=== PATIENT | female | born 1990 | race Caucasian/White ===

== ENCOUNTER 2020-05-17 12:11 | Outpatient (REF) | payer MEDICAID, SELFPAY | END 2020-05-17 12:12 | disposition home or self-care (01) | LOC: HO.LAB 12:11 | PROVIDERS: Visit Provider Internal Medicine | DX: Z20.822 Contact with and (suspected) exposure to COVID-19 (principal) | CPT/HCPCS: 36415; C9803; U0003; U0005 ==

== ENCOUNTER 2022-05-31 20:00 | Emergency (ER) | payer OTHER, SELFPAY ==
--- NOTE | ~2022-05-31 | CT_ITS ---
EXAMINATION: CT ABDOMEN AND PELVIS WITH CONTRAST CLINICAL INFORMATION: Right lower quadrant abdominal pain. COMPARISON: CT abdomen/pelvis 02/06/2012. TECHNIQUE: Multidetector volumetric images were obtained from the superior aspect of the liver through the pubic symphysis following administration 85 mL of Omnipaque 350 intravenous contrast. Sagittal and coronal reformatted images were obtained on the technologist's workstation. Oral contrast: No This CT examination was performed using dose optimization techniques as appropriate, variously including the following: *Automated exposure control *Adjustment of mA and/or kV according to patient size (this includes techniques or standardized protocols for targeted exams where dose is matched to indication/reason for exam; i.e. extremities or head) *Use of iterative reconstruction technique DLP: 358 mGy-cm FINDINGS: LUNG BASES: No focal consolidation or pleural effusion. LIVER, GALLBLADDER, AND BILIARY TREE: The liver is enlarged measuring 18.2 cm craniocaudally but otherwise normal in shape and attenuation. No discrete focal lesion. Cholecystectomy. No biliary ductal dilatation. PANCREAS: Unremarkable. SPLEEN: Unremarkable. ADRENAL GLANDS: Unremarkable. KIDNEYS AND URETERS: The kidneys are normal in size, shape, and attenuation. No hydronephrosis, hydroureter, or calculi seen. No perinephric stranding. BLADDER: Partially under distended limiting its evaluation. GASTROINTESTINAL TRACT: Nonspecific fluid filled distended loops of distal small bowel, for instance coronal image 19 and 23, series 5. The stomach is nondilated. Normal appendix. No pericolonic inflammatory changes to suspect acute diverticulitis or colitis. ABDOMINAL WALL: No significant hernia is appreciated. LYMPH NODES: Evaluation of lymph nodes is limited due to paucity of abdominal fat. Accounting for these limitations, no bulky lymphadenopathy is noted. VASCULAR: Unremarkable. PELVIC VISCERA: The right ovary appears asymmetrically enlarged with a 2 cm corpus luteal cyst. Very prominent periuterine/adnexal vessels. No significant free fluid. OSSEOUS STRUCTURES: No acute or aggressive appearing osseous abnormalities. CT/CT abdomen pelvis w IV con IMPRESSION: 1. Nonspecific fluid-filled distended loops of distal small bowel. This could be seen in the setting of gastroenteritis, correlate clinically. 2. The right ovary appears asymmetrically enlarged with a 2 cm corpus luteal cyst and very prominent periuterine/adnexal vessels. If torsion or acute ovarian pathology is suspected, recommend correlation with a pelvic ultrasound. 3. Very prominent periuterine vessels which could be seen in the setting of pelvic congestion syndrome, clinical correlation is needed. 4. Nonspecific hepatomegaly.
[2022-05-31 20:20] VITALS: BP 111/72; PULSE 88; RESP 18; TEMP 36.4; O2SAT 97; BMI 25.4
--- NOTE | 2022-05-31 20:24 | ED.GENADULT ---
HPI - General Adult General Chief complaint: Abdominal Pain <KELI Hickey - Last Filed: 06/01/22 13:19> Stated complaint: lower back and abd pain <KELI Hickey - Last Filed: 06/01/22 13:19> Time Seen by Provider: 05/31/22 22:43 <KELI Hickey - Last Filed: 06/01/22 13:19> Source: patient, RN notes reviewed and old records reviewed <Ron Ramsey - Last Filed: 06/01/22 02:01> Mode of arrival: ambulatory <Ron Ramsey - Last Filed: 06/01/22 02:01> Limitations: no limitations <Ron Ramsey - Last Filed: 06/01/22 02:01> History of Present Illness HPI narrative: 32-year-old male presents for evaluation of lower abdominal pain. Pressure reports 3 days of most the right lower abdominal pain. The pain radiates through to her back The pain is constant but has intermittent spikes of intensity She denies any nausea or vomiting but does endorse some nonbloody diarrhea Her pain is currently a 5/10 Denies any history abdominal surgeries. Patient reports irregular menstrual cycles sewed does not wear last menstrual cycle was. She is not on any control. Denies any vaginal bleeding or discharge Denies any burning with urination or blood in the urine <Ron Ramsey - Last Filed: 06/01/22 02:01> Related Data Home medications: Previous Rx's Medication Instructions Recorded doxycycline hyclate 100 mg tablet 100 mg PO BID #20 tabs 06/01/22 metronidazole 500 mg tablet 500 mg PO BID 7 days #14 tabs 06/03/22 <KELI Hickey - Last Filed: 06/01/22 13:19> Allergies/adverse reactions: Allergies Allergy/AdvReac Type Severity Reaction Status Date / Time Penicillins [PENICILLINS] Allergy Unknown PT HAD Verified 05/31/22 20:19 ALLERGY TESTING DONE AND CAME OUT NEGATIVE. <KELI Hickey - Last Filed: 06/01/22 13:19> Review of Systems Constitutional: Constitutional: Reports as per HPI, Denies chills, Denies fatigue, Denies fever(s) and Denies headache(s) <Ron Ramsey - Last Filed: 06/01/22 02:01> ENT: Denies headache(s) <Ron Lopez[place] - Last Filed: 06/01/22 02:01> Cardiovascular: Cardiovascular: Denies chest pain and Denies dyspnea <Ron John Last Filed: 06/01/22 02:01> Respiratory: Respiratory: Denies cough and Denies dyspnea <Ron [place] - Last Filed: 06/01/22 02:01> Gastrointestinal: Gastrointestinal: Reports abdominal pain, Denies constipation, Reports diarrhea and Denies vomiting <Ron [place] - Last Filed: 06/01/22 02:01> Genitourinary: Genitourinary: Denies dysuria <Ron JohnVikas - Last Filed: 06/01/22 02:01> Neurologic: Denies headache(s) and Denies focal weakness <Ron [place] - Last Filed: 06/01/22 02:01> Endocrine: Endocrine: Denies fatigue <Ron [place] - Last Filed: 06/01/22 02:01> [facility] Social History Social History: Social History Alcohol intake: never Smoked in Last 30 Days: Yes Use of substances other than those prescribed or required for medical reasons: Yes Substance Use Type: Marijuana Advance Directives: No Advance Directives Information Provided: No <KELI Hickey - Last Filed: 06/01/22 13:19> Physical Exam ED Vital Signs: Vital Signs - 24 hr 05/31/22 20:20 05/31/22 22:54 06/01/22 02:51 Temperature 97.5 F 98.2 F 98.4 F Pulse Rate 88 72 85 Respiratory Rate 18 16 16 Blood Pressure 111/72 112/67 116/69 Pulse Oximetry 97 98 99 Oxygen Delivery Method Room Air Room Air Room Air BMI result Body Mass Index 25.4 <KELI Hickey - Last Filed: 06/01/22 13:19> Vital Signs - 24 hr 05/31/22 20:20 05/31/22 22:54 06/01/22 02:51 Temperature 97.5 F 98.2 F 98.4 F Pulse Rate 88 72 85 Respiratory Rate 18 16 16 Blood Pressure 111/72 112/67 116/69 Pulse Oximetry 97 98 99 Oxygen Delivery Method Room Air Room Air Room Air BMI result Body Mass Index 25.4 <Ron Ramsey - Last Filed: 06/01/22 02:01> Vital Signs - 24 hr 05/31/22 20:20 05/31/22 22:54 06/01/22 02:51 Temperature 97.5 F 98.2 F 98.4 F Pulse Rate 88 72 85 Respiratory Rate 18 16 16 Blood Pressure 111/72 112/67 116/69 Pulse Oximetry 97 98 99 Oxygen Delivery Method Room Air Room Air Room Air BMI result Body Mass Index 25.4 <KELI Mariee - Last Filed: 06/03/22 12:14> Const General: healthy appearing, comfortable, no acute distress, alert and awake <Ron Ramsey - Last Filed: 06/01/22 02:01> Nutritional Appearance: well nourished <Ron Calrosy - Last Filed: 06/01/22 02:01> Orientation/consciousness: patient oriented x3 <Ron Clarosy - Last Filed: 06/01/22 02:01> HENMT Head: Yes normocephalic and Yes atraumatic <Ron [place] - Last Filed: 06/01/22 02:01> Throat: Yes posterior oropharynx normal <Ron Ramsey - Last Filed: 06/01/22 02:01> Eyes Eyelids: Yes eyelids normal <Ron Clarosy - Last Filed: 06/01/22 02:01> Conjunctivae: conjunctivae normal <Ron [place] - Last Filed: 06/01/22 02:01> Sclerae: sclerae normal <Ron [place] - Last Filed: 06/01/22 02:01> Corneas: corneas normal <Ron [place] - Last Filed: 06/01/22 02:01> Pupils: Equal, round and reactive pupils present <Ron LopezVikas - Last Filed: 06/01/22 02:01> EOM: EOMs intact bilaterally <Ron Clarosy - Last Filed: 06/01/22 02:01> Neck Neck: Yes full ROM <Ron Clarosy - Last Filed: 06/01/22 02:01> Resp Effort & Inspection: normal respiratory effort, able to speak in complete sentences, no audible wheezes and not labored <Ron Clarosy - Last Filed: 06/01/22 02:01> Auscultation: clear to auscultation bilaterally <Ron [place] - Last Filed: 06/01/22 02:01> Cardio Rate: regular rate <Ron John - Last Filed: 06/01/22 02:01> Rhythm: regular rhythm <Ron [place] - Last Filed: 06/01/22 02:01> GI Inspection: No distended <Ron [place] - Last Filed: 06/01/22 02:01> Palpation (GI): Soft to palpation, not firm, Tenderness to palpation present (GI) in the RLQ; with no rebound tenderness and Rovsing's sign negative, no guarding and not rigid <Ron O Last Filed: 06/01/22 02:01> Auscultation: normoactive bowel sounds <Ron [place] - Last Filed: 06/01/22 02:01> Other: Normal external female genitalia. There is a moderate amount of yellowish vaginal discharge in the vaginal vault. No adnexal tenderness. <Ron [place] - Last Filed: 06/01/22 02:01> Skin General skin exam: no rashes or lesions noted and elasticity normal <Ron [place] - Last Filed: 06/01/22 02:01> Neuro General: patient oriented x3 <Ron OVikas - Last Filed: 06/01/22 02:01> Cranial nerves: Yes CN's II-XII intact bilaterally, Yes Equal, round and reactive pupils present and Yes Bilaterally intact EOM present <Ron [place] - Last Filed: 06/01/22 02:01> Cognition (Neuro): normal cognition <Ron [place] - Last Filed: 06/01/22 02:01> Extrem Other: Moving all extremities well without any obvious deformities <Ron Clarosy - Last Filed: 06/01/22 02:01> Course Course Course Narrative: RME: 32 yold female presents to the ED for abdominal pain with nausea and vomitting. Denies symptoms. Labs ordered <KELI Hickey - Last Filed: 06/01/22 13:19> Reevaluation(s) Reevaluation #1: Patient's CT scan showed concern for enteritis as well as right ovarian cyst. There also prominent vessels in the periuterine region which could be seen in the setting of pelvic congestion syndrome. However given the evidence of ovarian cyst with prominent vessels, I discussed the patient that we could not rule out torsion. A pelvic exam was obtained, the patient has no adnexal tenderness but did have significant vaginal discharge. This was sent for gonorrhea and chlamydia testing. The patient like to be treated empirically for this pending results as she is sexually active. Again, I feel that apparent orders much less likely given other findings to explain the patient's pain including enteritis, and likely PID. The patient was struck to return for severe, worsening abdominal pain for ultrasound. To <Ron Ramsey - Last Filed: 06/01/22 02:01> Time: 01:57 <Ron Ramsey - Last Filed: 06/01/22 02:01> Reevaluation #2: 06/03/22--cultures positive for chlamydia and BV. Patient called and informed of results. Treated already for Chlamydia, sent in Flagyl to pharmacy <KELI Mariee - Last Filed: 06/03/22 12:14> Medications Administered Discontinued Medications Generic Name Dose Route Start Last Admin Trade Name Freq PRN Reason Stop Dose Admin Ceftriaxone Sodium 500 mg 06/01/22 01:56 06/01/22 02:46 Ceftriaxone Sodium 500 Mg Vial IM 06/01/22 01:57 500 mg ONCE ONE Administration Doxycycline Monohydrate 100 mg 06/01/22 01:56 06/01/22 02:40 Doxycycline Monohydrate 100 Mg Capsule PO 06/01/22 01:57 100 mg ONCE ONE Administration Iohexol 85 ml 05/31/22 23:56 05/31/22 23:58 Iohexol 350 Mg/Ml 100 Ml Infus..Btl IV 05/31/22 23:57 85 ml ONCE ONE Administration Ketorolac Tromethamine 30 mg 06/01/22 01:39 06/01/22 02:38 Ketorolac Tromethamine 30 Mg/Ml Vial IVPUSH 06/01/22 01:40 30 mg ONCE ONE Administration Lidocaine HCl 2 ml 06/01/22 02:01 06/01/22 02:46 Lidocaine Hcl 1 % Mpf 2 Ml Vial INFILTRATI 06/01/22 02:02 2 ml ONCE ONE Administration <KELI Hickey - Last Filed: 06/01/22 13:19> Medications Administered Discontinued Medications Generic Name Dose Route Start Last Admin Trade Name Kaushik PRN Reason Stop Dose Admin Ceftriaxone Sodium 500 mg 06/01/22 01:56 06/01/22 02:46 Ceftriaxone Sodium 500 Mg Vial IM 06/01/22 01:57 500 mg ONCE ONE Administration Doxycycline Monohydrate 100 mg 06/01/22 01:56 06/01/22 02:40 Doxycycline Monohydrate 100 Mg Capsule PO 06/01/22 01:57 100 mg ONCE ONE Administration Iohexol 85 ml 05/31/22 23:56 05/31/22 23:58 Iohexol 350 Mg/Ml 100 Ml Infus..Btl IV 05/31/22 23:57 85 ml ONCE ONE Administration Ketorolac Tromethamine 30 mg 06/01/22 01:39 06/01/22 02:38 Ketorolac Tromethamine 30 Mg/Ml Vial IVPUSH 06/01/22 01:40 30 mg ONCE ONE Administration Lidocaine HCl 2 ml 06/01/22 02:01 06/01/22 02:46 Lidocaine Hcl 1 % Mpf 2 Ml Vial INFILTRATI 06/01/22 02:02 2 ml ONCE ONE Administration <Ron Ramsey - Last Filed: 06/01/22 02:01> Medications Administered Discontinued Medications Generic Name Dose Route Start Last Admin Trade Name Kaushik PRN Reason Stop Dose Admin Ceftriaxone Sodium 500 mg 06/01/22 01:56 06/01/22 02:46 Ceftriaxone Sodium 500 Mg Vial IM 06/01/22 01:57 500 mg ONCE ONE Administration Doxycycline Monohydrate 100 mg 06/01/22 01:56 06/01/22 02:40 Doxycycline Monohydrate 100 Mg Capsule PO 06/01/22 01:57 100 mg ONCE ONE Administration Iohexol 85 ml 05/31/22 23:56 05/31/22 23:58 Iohexol 350 Mg/Ml 100 Ml Infus..Btl IV 05/31/22 23:57 85 ml ONCE ONE Administration Ketorolac Tromethamine 30 mg 06/01/22 01:39 06/01/22 02:38 Ketorolac Tromethamine 30 Mg/Ml Vial IVPUSH 06/01/22 01:40 30 mg ONCE ONE Administration Lidocaine HCl 2 ml 06/01/22 02:01 06/01/22 02:46 Lidocaine Hcl 1 % Mpf 2 Ml Vial INFILTRATI 06/01/22 02:02 2 ml ONCE ONE Administration <KELI Mariee - Last Filed: 06/03/22 12:14> Medical Decision Making Medical Decision Making MDM Narrative: 32-year-old female presents for evaluation of right lower abdominal pain with diarrhea. Her pain is reproducible on exam. There is some concern for acute appendicitis. Will get labs, UA and CT scan of the pelvis. Will make sure patient is not prior to CT imaging. Patient denies any complaints <Ron Ramsey - Last Filed: 06/01/22 02:01> Differential Diagnosis Abdominal pain Acute appendicitis Ovarian cyst Constipation So strain Obstructive uropathy UTI Pyelonephritis <Ron Ramsey - Last Filed: 06/01/22 02:01> Lab Data Result Diagrams: 05/31/22 22:50 05/31/22 22:50 <KELI Hickey - Last Filed: 06/01/22 13:19> Labs: Lab Results 05/31/22 05/31/22 05/31/22 Range/Units 22:50 22:50 22:50 WBC 12.3 H (4.8-10.8) X10*3/uL RBC 4.04 L (4.20-5.50) X10*6/uL Hgb 12.0 (12.0-16.0) g/dl Hct 36.1 L (37.0-47.0) % MCV 89.4 (80.0-98.0) fL MCH 29.7 (27.0-33.0) pg MCHC 33.2 (31.0-35.0) g/dl RDW 13.5 (11.0-16.0) % Plt Count 241 (160-400) X10*3/uL MPV 10.3 (9.4-12.3) fL Immature Gran % (Auto) 0.3 (0.0-0.4) % Neut % (Auto) 63.6 (45-73) % Lymph % (Auto) 24.0 (20-40) % [place]ett % (Auto) 10.0 (2-11) % Eos % (Auto) 1.9 (0-4) % Baso % (Auto) 0.2 (0-2) % Lymph # (Auto) 3.0 (1.2-4.9) X10*3/uL [place] # (Auto) 1.2 (0.1-1.2) X10*3/uL Eos # (Auto) 0.2 (0.0-0.4) X10*3/uL Baso # (Auto) 0.0 (0.0-0.2) X10*3/uL Abs Immat Gran (auto) 0.04 H (0.00-0.03) X10*3/uL Absolute Neuts (auto) 7.8 (2.0-8.3) x10*3/uL Absolute Nucleated RBC 0.000 (0.0-0.012) X10*3/uL Nucleated RBC % (auto) 0.0 (0.0-0.2) /100WBC PT 11.5 (10.0-13.1) SEC INR 1.0 (0.9-1.1) APTT 32.7 (26.0-36.4) SEC Sodium 140 (135-145) mmol/L Potassium 3.9 (3.3-5.1) mmol/L Chloride 105 (96-108) mmol/L Carbon Dioxide 27 (22-29) mmol/L Anion Gap 12 (12-20) BUN 16 (9-16) mg/dL Creatinine 0.71 (0.5-1.4) mg/dL Estim Creat Clear Calc 96.3 Estimated GFR > 60 Random Glucose 103 (60-115) mg/dL Calcium 9.2 (8.4-10.2) mg/dL Total Bilirubin 0.3 (0.0-1.0) mg/dL AST 18 (5-31) U/L ALT 18 (0-31) U/L Alkaline Phosphatase 42 (39-117) U/L Total Protein 6.4 L (6.5-8.0) g/dL Albumin 3.9 (3.5-5.0) g/dL Beta HCG, Quant < 2 mIU/mL Urine Color Urine Appearance Urine pH (5.0-9.0) Ur Specific [place] (1.005-1.025) Urine Protein (Neg-Trace) mg/dL Urine Glucose (UA) (Negative) mg/dL Urine Ketones (Negative) mg/dL Urine Blood (Negative) Urine Nitrite (Negative) Ur Leukocyte Esterase (Negative) Urine RBC (0-2) /HPF Urine WBC (0-5) /HPF Ur Squamous Epith Cells (0-2) /HPF Urine Bacteria (None Seen) Hyaline Casts (0-2) /LPF Renea species DNA (Negative) Chlam trachomat DNA PCR (Not Detect.) Gardnerella DNA Probe (Negative) N.gonorrhoeae DNA (PCR) (Not Detect.) Trichomonas DNA Probe (Negative) 05/31/22 06/01/22 06/01/22 Range/Units 23:43 01:58 01:58 WBC (4.8-10.8) X10*3/uL RBC (4.20-5.50) X10*6/uL Hgb (12.0-16.0) g/dl Hct (37.0-47.0) % MCV (80.0-98.0) fL MCH (27.0-33.0) pg MCHC (31.0-35.0) g/dl RDW (11.0-16.0) % Plt Count (160-400) X10*3/uL MPV (9.4-12.3) fL Immature Gran % (Auto) (0.0-0.4) % Neut % (Auto) (45-73) % Lymph % (Auto) (20-40) % Pickett % (Auto) (2-11) % Eos % (Auto) (0-4) % Baso % (Auto) (0-2) % Lymph # (Auto) (1.2-4.9) X10*3/uL [place] # (Auto) (0.1-1.2) X10*3/uL Eos # (Auto) (0.0-0.4) X10*3/uL Baso # (Auto) (0.0-0.2) X10*3/uL Abs Immat Gran (auto) (0.00-0.03) X10*3/uL Absolute Neuts (auto) (2.0-8.3) x10*3/uL Absolute Nucleated RBC (0.0-0.012) X10*3/uL Nucleated RBC % (auto) (0.0-0.2) /100WBC PT (10.0-13.1) SEC INR (0.9-1.1) APTT (26.0-36.4) SEC Sodium (135-145) mmol/L Potassium (3.3-5.1) mmol/L Chloride (96-108) mmol/L Carbon Dioxide (22-29) mmol/L Anion Gap (12-20) BUN (9-16) mg/dL Creatinine (0.5-1.4) mg/dL Estim Creat Clear Calc Estimated GFR Random Glucose (60-115) mg/dL Calcium (8.4-10.2) mg/dL Total Bilirubin (0.0-1.0) mg/dL AST (5-31) U/L ALT (0-31) U/L Alkaline Phosphatase (39-117) U/L Total Protein (6.5-8.0) g/dL Albumin (3.5-5.0) g/dL Beta HCG, Quant mIU/mL Urine Color Yellow Urine Appearance Clear Urine pH 6.0 (5.0-9.0) Ur Specific [place] 1.020 (1.005-1.025) Urine Protein Negative (Neg-Trace) mg/dL Urine Glucose (UA) Negative (Negative) mg/dL Urine Ketones Negative (Negative) mg/dL Urine Blood Negative (Negative) Urine Nitrite Negative (Negative) Ur Leukocyte Esterase Moderate (2+) H (Negative) Urine RBC 0-2 (0-2) /HPF Urine WBC 21-50 H (0-5) /HPF Ur Squamous Epith Cells 0-2 (0-2) /HPF Urine Bacteria None Seen (None Seen) Hyaline Casts 0-2 (0-2) /LPF Renea species DNA Negative (Negative) Chlam trachomat DNA PCR DETECTED A (Not Detect.) Gardnerella DNA Probe Positive A (Negative) N.gonorrhoeae DNA (PCR) NOT DETECTED (Not Detect.) Trichomonas DNA Probe Negative (Negative) <KELI Hickey - Last Filed: 06/01/22 13:19> Lab Results 05/31/22 05/31/22 05/31/22 Range/Units 22:50 22:50 22:50 WBC 12.3 H (4.8-10.8) X10*3/uL RBC 4.04 L (4.20-5.50) X10*6/uL Hgb 12.0 (12.0-16.0) g/dl Hct 36.1 L (37.0-47.0) % MCV 89.4 (80.0-98.0) fL MCH 29.7 (27.0-33.0) pg MCHC 33.2 (31.0-35.0) g/dl RDW 13.5 (11.0-16.0) % Plt Count 241 (160-400) X10*3/uL MPV 10.3 (9.4-12.3) fL Immature Gran % (Auto) 0.3 (0.0-0.4) % Neut % (Auto) 63.6 (45-73) % Lymph % (Auto) 24.0 (20-40) % Pickett % (Auto) 10.0 (2-11) % Eos % (Auto) 1.9 (0-4) % Baso % (Auto) 0.2 (0-2) % Lymph # (Auto) 3.0 (1.2-4.9) X10*3/uL [place] # (Auto) 1.2 (0.1-1.2) X10*3/uL Eos # (Auto) 0.2 (0.0-0.4) X10*3/uL Baso # (Auto) 0.0 (0.0-0.2) X10*3/uL Abs Immat Gran (auto) 0.04 H (0.00-0.03) X10*3/uL Absolute Neuts (auto) 7.8 (2.0-8.3) x10*3/uL Absolute Nucleated RBC 0.000 (0.0-0.012) X10*3/uL Nucleated RBC % (auto) 0.0 (0.0-0.2) /100WBC PT 11.5 (10.0-13.1) SEC INR 1.0 (0.9-1.1) APTT 32.7 (26.0-36.4) SEC Sodium 140 (135-145) mmol/L Potassium 3.9 (3.3-5.1) mmol/L Chloride 105 (96-108) mmol/L Carbon Dioxide 27 (22-29) mmol/L Anion Gap 12 (12-20) BUN 16 (9-16) mg/dL Creatinine 0.71 (0.5-1.4) mg/dL Estim Creat Clear Calc 96.3 Estimated GFR > 60 Random Glucose 103 (60-115) mg/dL Calcium 9.2 (8.4-10.2) mg/dL Total Bilirubin 0.3 (0.0-1.0) mg/dL AST 18 (5-31) U/L ALT 18 (0-31) U/L Alkaline Phosphatase 42 (39-117) U/L Total Protein 6.4 L (6.5-8.0) g/dL Albumin 3.9 (3.5-5.0) g/dL Beta HCG, Quant < 2 mIU/mL Urine Color Urine Appearance Urine pH (5.0-9.0) Ur Specific [place] (1.005-1.025) Urine Protein (Neg-Trace) mg/dL Urine Glucose (UA) (Negative) mg/dL Urine Ketones (Negative) mg/dL Urine Blood (Negative) Urine Nitrite (Negative) Ur Leukocyte Esterase (Negative) Urine RBC (0-2) /HPF Urine WBC (0-5) /HPF Ur Squamous Epith Cells (0-2) /HPF Urine Bacteria (None Seen) Hyaline Casts (0-2) /LPF Renea species DNA (Negative) Chlam trachomat DNA PCR (Not Detect.) Gardnerella DNA Probe (Negative) N.gonorrhoeae DNA (PCR) (Not Detect.) Trichomonas DNA Probe (Negative) 05/31/22 06/01/22 06/01/22 Range/Units 23:43 01:58 01:58 WBC (4.8-10.8) X10*3/uL RBC (4.20-5.50) X10*6/uL Hgb (12.0-16.0) g/dl Hct (37.0-47.0) % MCV (80.0-98.0) fL MCH (27.0-33.0) pg MCHC (31.0-35.0) g/dl RDW (11.0-16.0) % Plt Count (160-400) X10*3/uL MPV (9.4-12.3) fL Immature Gran % (Auto) (0.0-0.4) % Neut % (Auto) (45-73) % Lymph % (Auto) (20-40) % [place] % (Auto) (2-11) % Eos % (Auto) (0-4) % Baso % (Auto) (0-2) % Lymph # (Auto) (1.2-4.9) X10*3/uL [place] # (Auto) (0.1-1.2) X10*3/uL Eos # (Auto) (0.0-0.4) X10*3/uL Baso # (Auto) (0.0-0.2) X10*3/uL Abs Immat Gran (auto) (0.00-0.03) X10*3/uL Absolute Neuts (auto) (2.0-8.3) x10*3/uL Absolute Nucleated RBC (0.0-0.012) X10*3/uL Nucleated RBC % (auto) (0.0-0.2) /100WBC PT (10.0-13.1) SEC INR (0.9-1.1) APTT (26.0-36.4) SEC Sodium (135-145) mmol/L Potassium (3.3-5.1) mmol/L Chloride (96-108) mmol/L Carbon Dioxide (22-29) mmol/L Anion Gap (12-20) BUN (9-16) mg/dL Creatinine (0.5-1.4) mg/dL Estim Creat Clear Calc Estimated GFR Random Glucose (60-115) mg/dL Calcium (8.4-10.2) mg/dL Total Bilirubin (0.0-1.0) mg/dL AST (5-31) U/L ALT (0-31) U/L Alkaline Phosphatase (39-117) U/L Total Protein (6.5-8.0) g/dL Albumin (3.5-5.0) g/dL Beta HCG, Quant mIU/mL Urine Color Yellow Urine Appearance Clear Urine pH 6.0 (5.0-9.0) Ur Specific [place] 1.020 (1.005-1.025) Urine Protein Negative (Neg-Trace) mg/dL Urine Glucose (UA) Negative (Negative) mg/dL Urine Ketones Negative (Negative) mg/dL Urine Blood Negative (Negative) Urine Nitrite Negative (Negative) Ur Leukocyte Esterase Moderate (2+) H (Negative) Urine RBC 0-2 (0-2) /HPF Urine WBC 21-50 H (0-5) /HPF Ur Squamous Epith Cells 0-2 (0-2) /HPF Urine Bacteria None Seen (None Seen) Hyaline Casts 0-2 (0-2) /LPF Renea species DNA Negative (Negative) Chlam trachomat DNA PCR DETECTED A (Not Detect.) Gardnerella DNA Probe Positive A (Negative) N.gonorrhoeae DNA (PCR) NOT DETECTED (Not Detect.) Trichomonas DNA Probe Negative (Negative) <Ron Ramsey - Last Filed: 06/01/22 02:01> Lab Results 05/31/22 05/31/22 05/31/22 Range/Units 22:50 22:50 22:50 WBC 12.3 H (4.8-10.8) X10*3/uL RBC 4.04 L (4.20-5.50) X10*6/uL Hgb 12.0 (12.0-16.0) g/dl Hct 36.1 L (37.0-47.0) % MCV 89.4 (80.0-98.0) fL MCH 29.7 (27.0-33.0) pg MCHC 33.2 (31.0-35.0) g/dl RDW 13.5 (11.0-16.0) % Plt Count 241 (160-400) X10*3/uL MPV 10.3 (9.4-12.3) fL Immature Gran % (Auto) 0.3 (0.0-0.4) % Neut % (Auto) 63.6 (45-73) % Lymph % (Auto) 24.0 (20-40) % [place] % (Auto) 10.0 (2-11) % Eos % (Auto) 1.9 (0-4) % Baso % (Auto) 0.2 (0-2) % Lymph # (Auto) 3.0 (1.2-4.9) X10*3/uL [place] # (Auto) 1.2 (0.1-1.2) X10*3/uL Eos # (Auto) 0.2 (0.0-0.4) X10*3/uL Baso # (Auto) 0.0 (0.0-0.2) X10*3/uL Abs Immat Gran (auto) 0.04 H (0.00-0.03) X10*3/uL Absolute Neuts (auto) 7.8 (2.0-8.3) x10*3/uL Absolute Nucleated RBC 0.000 (0.0-0.012) X10*3/uL Nucleated RBC % (auto) 0.0 (0.0-0.2) /100WBC PT 11.5 (10.0-13.1) SEC INR 1.0 (0.9-1.1) APTT 32.7 (26.0-36.4) SEC Sodium 140 (135-145) mmol/L Potassium 3.9 (3.3-5.1) mmol/L Chloride 105 (96-108) mmol/L Carbon Dioxide 27 (22-29) mmol/L Anion Gap 12 (12-20) BUN 16 (9-16) mg/dL Creatinine 0.71 (0.5-1.4) mg/dL Estim Creat Clear Calc 96.3 Estimated GFR > 60 Random Glucose 103 (60-115) mg/dL Calcium 9.2 (8.4-10.2) mg/dL Total Bilirubin 0.3 (0.0-1.0) mg/dL AST 18 (5-31) U/L ALT 18 (0-31) U/L Alkaline Phosphatase 42 (39-117) U/L Total Protein 6.4 L (6.5-8.0) g/dL Albumin 3.9 (3.5-5.0) g/dL Beta HCG, Quant < 2 mIU/mL Urine Color Urine Appearance Urine pH (5.0-9.0) Ur Specific [place] (1.005-1.025) Urine Protein (Neg-Trace) mg/dL Urine Glucose (UA) (Negative) mg/dL Urine Ketones (Negative) mg/dL Urine Blood (Negative) Urine Nitrite (Negative) Ur Leukocyte Esterase (Negative) Urine RBC (0-2) /HPF Urine WBC (0-5) /HPF Ur Squamous Epith Cells (0-2) /HPF Urine Bacteria (None Seen) Hyaline Casts (0-2) /LPF Renea species DNA (Negative) Chlam trachomat DNA PCR (Not Detect.) Gardnerella DNA Probe (Negative) N.gonorrhoeae DNA (PCR) (Not Detect.) Trichomonas DNA Probe (Negative) 05/31/22 06/01/22 06/01/22 Range/Units 23:43 01:58 01:58 WBC (4.8-10.8) X10*3/uL RBC (4.20-5.50) X10*6/uL Hgb (12.0-16.0) g/dl Hct (37.0-47.0) % MCV (80.0-98.0) fL MCH (27.0-33.0) pg MCHC (31.0-35.0) g/dl RDW (11.0-16.0) % Plt Count (160-400) X10*3/uL MPV (9.4-12.3) fL Immature Gran % (Auto) (0.0-0.4) % Neut % (Auto) (45-73) % Lymph % (Auto) (20-40) % [place] % (Auto) (2-11) % Eos % (Auto) (0-4) % Baso % (Auto) (0-2) % Lymph # (Auto) (1.2-4.9) X10*3/uL [place] # (Auto) (0.1-1.2) X10*3/uL Eos # (Auto) (0.0-0.4) X10*3/uL Baso # (Auto) (0.0-0.2) X10*3/uL Abs Immat Gran (auto) (0.00-0.03) X10*3/uL Absolute Neuts (auto) (2.0-8.3) x10*3/uL Absolute Nucleated RBC (0.0-0.012) X10*3/uL Nucleated RBC % (auto) (0.0-0.2) /100WBC PT (10.0-13.1) SEC INR (0.9-1.1) APTT (26.0-36.4) SEC Sodium (135-145) mmol/L Potassium (3.3-5.1) mmol/L Chloride (96-108) mmol/L Carbon Dioxide (22-29) mmol/L Anion Gap (12-20) BUN (9-16) mg/dL Creatinine (0.5-1.4) mg/dL Estim Creat Clear Calc Estimated GFR Random Glucose (60-115) mg/dL Calcium (8.4-10.2) mg/dL Total Bilirubin (0.0-1.0) mg/dL AST (5-31) U/L ALT (0-31) U/L Alkaline Phosphatase (39-117) U/L Total Protein (6.5-8.0) g/dL Albumin (3.5-5.0) g/dL Beta HCG, Quant mIU/mL Urine Color Yellow Urine Appearance Clear Urine pH 6.0 (5.0-9.0) Ur Specific [place] 1.020 (1.005-1.025) Urine Protein Negative (Neg-Trace) mg/dL Urine Glucose (UA) Negative (Negative) mg/dL Urine Ketones Negative (Negative) mg/dL Urine Blood Negative (Negative) Urine Nitrite Negative (Negative) Ur Leukocyte Esterase Moderate (2+) H (Negative) Urine RBC 0-2 (0-2) /HPF Urine WBC 21-50 H (0-5) /HPF Ur Squamous Epith Cells 0-2 (0-2) /HPF Urine Bacteria None Seen (None Seen) Hyaline Casts 0-2 (0-2) /LPF Renea species DNA Negative (Negative) Chlam trachomat DNA PCR DETECTED A (Not Detect.) Gardnerella DNA Probe Positive A (Negative) N.gonorrhoeae DNA (PCR) NOT DETECTED (Not Detect.) Trichomonas DNA Probe Negative (Negative) <KELI Mariee - Last Filed: 06/03/22 12:14> Discharge Plan Discharge Clinical Impression: Intermittent lower abdominal pain, Enteritis <KELI Hickey - Last Filed: 06/01/22 13:19> Patient Disposition: Home, Self-Care <KELI Hickey Last Filed: 06/01/22 13:19> Instructions: Abdominal Pain (ED) <KELI Hickey Last Filed: 06/01/22 13:19> Additional Instructions: Your CT scan showed enteritis as well as a right-sided ovarian cyst. This likely explains her pain and diarrhea. Your also tested and treated for both gonorrhea and chlamydia as you had some vaginal discharge on exam. If you develop severe, worsening right lower abdominal pain, return for an ultrasound to evaluate for evaluate torsion although, I feel this is much less likely Take the antibiotics as prescribed. Will call you if your test results are positive for gonorrhea or chlamydia <KELI Hickey - Last Filed: 06/01/22 13:19> Prescriptions: New doxycycline hyclate 100 mg tablet 100 mg PO BID Qty: 20 0RF metronidazole 500 mg tablet 500 mg PO BID 7 Days Qty: 14 0RF <KELI Hickey - Last Filed: 06/01/22 13:19> Interventions: ED Discharge Assessment Last Done: 06/01/22 02:54 <KELI Hickey - Last Filed: 06/01/22 13:19> Discharge Date/Time: 06/01/22 02:54 <KELI Hickey - Last Filed: 06/01/22 13:19>
[2022-05-31 22:54] VITALS: BP 112/67; PULSE 72; RESP 16; TEMP 36.8; O2SAT 98
[2022-05-31 22:55] LABS: MANUAL DIFF FLAG NO
[2022-05-31 22:58] LABS: Basophils Percent Auto 0.2 % (0-2); Eosinophils Absolute Auto 0.2 X10*3/uL (0.0-0.4); Eosinophils Percent Auto 1.9 % (0-4); Hematocrit 36.1 % (37.0-47.0); Imm Gran Abs Auto 0.04 X10*3/uL (0.00-0.03); Imm Gran Pct Auto 0.3 % (0.0-0.4); Mean Corpuscular HGB Conc 33.2 g/dl (31.0-35.0); Mean Corpuscular Hemoglobin 29.7 pg (27.0-33.0); Mean Corpuscular Volume 89.4 fL (80.0-98.0); Mean Platelet Volume 10.3 fL (9.4-12.3); Monocytes Absolute Auto 1.2 X10*3/uL (0.1-1.2); Neutrophils Absolute Auto 7.8 x10*3/uL (2.0-8.3); Neutrophils Percent Auto 63.6 % (45-73); Platelet Count 241 X10*3/uL (160-400); Red Blood Count 4.04 X10*6/uL (4.20-5.50); Red Cell Distribution Width 13.5 % (11.0-16.0); White Blood Count 12.3 X10*3/uL (4.8-10.8)
[2022-05-31 23:03] LABS: Prothrombin Time 11.5 SEC (10.0-13.1)
[2022-05-31 23:06] LABS: Partial Thromboplastin Time 32.7 SEC (26.0-36.4)
[2022-05-31 23:21] LABS: Alanine Aminotransferase 18 U/L (0-31); Albumin Level 3.9 g/dL (3.5-5.0); Alkaline Phosphatase 42 U/L (39-117); Anion Gap 12 (12-20); Aspartate Amino Transferase 18 U/L (5-31); Bilirubin Total 0.3 mg/dL (0.0-1.0); Blood Urea Nitrogen 16 mg/dL (9-16); Calcium 9.2 mg/dL (8.4-10.2); Carbon Dioxide 27 mmol/L (22-29); Chloride 105 mmol/L (96-108); Creatinine Clr Calc Pharmacy 96.3; Estimated Glomerular Filt Rate > 60; Glucose Random 103 mg/dL (60-115); HCG Quantitative < 2 mIU/mL; Potassium 3.9 mmol/L (3.3-5.1); Sodium 140 mmol/L (135-145); Total Protein 6.4 g/dL (6.5-8.0)
[2022-05-31 23:49] LABS: Appearance Urine Clear; Color Urine Yellow; Glucose Urine UA Negative (Negative); Leukocyte Esterase Urine Moderate (2+) (Negative); Nitrite Urine Negative (Negative); UMIC TRIGGER UACC YES; Urine Blood Negative (Negative); Urine Ketones Negative (Negative); Urine Protein Negative (Neg-Trace)
--- NOTE | 2022-05-31 23:49 | PC.NURSE ---
pt c/o abdominal pain that radiates to the flank and lower back, pt denies change in urine frequency, denies dysuria, denies n/v; aox4 pt states pain began 3 days ago no apparent distress pt resting while on phone CT w/ IV contrast to follow
[2022-05-31 23:53] LABS: Bacteria Urine None Seen (None Seen); Hyaline Casts Urine 0-2 /LPF (0-2); RBC Urine 0-2 /HPF (0-2); Squamous Epithelial Cell Urine 0-2 /HPF (0-2); UACC Culture Trigger YES; WBC Urine 21-50 /HPF (0-5)
[2022-05-31] MEDS: iohexoL 350 MG/ML 100 ML INFUS..BTL 85 ML IV (23:58)
[2022-06-01] MEDS: Ketorolac Tromethamine 30 MG/ML VIAL IVPUSH (02:38)
[2022-06-01] MEDS: Doxycycline Monohydrate 100 MG CAPSULE PO (02:40)
[2022-06-01] MEDS: cefTRIAXone sodium 500 MG VIAL IM (02:46)
[2022-06-01] MEDS: Lidocaine HCl 1 % MPF 2 ML VIAL INFILTRATI (02:46)
[2022-06-01 02:51] VITALS: BP 116/69; PULSE 85; RESP 16; TEMP 36.9; O2SAT 99
--- NOTE | 2022-06-01 02:55 | PC.NURSE ---
Discharge instructions given and explained to patient Patient is able to ambulate safely/independently No apparent distress aox4 IV cath intact upon removal
[2022-06-01 03:32] LABS: CT PCR DETECTED (Not Detect.); NG PCR NOT DETECTED (Not Detect.)
[2022-06-01 13:05] LABS: BV Int Neg Control Negative (Negative); BV Int Pos Control Positive (Positive)
== END 2022-06-01 02:54 | disposition home or self-care (01) ==
PROVIDERS: Physician Assistant; Emergency Provider Emergency Medicine
DX: K52.9 Noninfective gastroenteritis and colitis, unspecified (principal); R10.31 Right lower quadrant pain; Z20.2 Contact with and (suspected) exposure to infections with a predominantly sexual mode of transmission; Z79.899 Other long term (current) drug therapy
CPT/HCPCS: 0353U; 36415; 74177; 80053; 81001; 84702; 85025; 85610; 85730; 87086; 87147; 87480; 87510; 87660; 99285; J0696; J1885; Q9967